=== PATIENT | female | born 1950 | race Caucasian/White ===

== ENCOUNTER → 2018-10-28 10:16 | Outpatient (CLI) | payer MEDICARE, SELFPAY ==
[2018-10-28 10:13] VITALS: BMI 52.1
--- NOTE | 2018-10-28 10:19 | RAD_ITS ---
STUDY: X-RAY - LEFT SHOULDER REASON FOR EXAM: Female, 68 years old. Pain TECHNIQUE: 3 view(s) of the shoulder. COMPARISON: None. FINDINGS: Mild degenerative changes of the acromioclavicular joint. No acute fractures and no calcific tendinitis or bursitis Electronically Signed: Georgi Moreno MD at 7:20 EST Tel , Service support , RAD/Shoulder min 2 Views
== END ==
PROVIDERS: Family Provider Physician Assistant; PCP Nurse Practitioner Family; Referring Provider Nurse Practitioner Family; Visit Provider Physician Assistant
DX: M25.512 Pain in left shoulder (principal)
CPT/HCPCS: 73030

== ENCOUNTER → 2018-11-11 07:06 | Outpatient (CLI) | payer MEDICARE, SELFPAY ==
[2018-10-28 10:13] VITALS: BMI 52.1
--- NOTE | 2018-11-11 07:12 | MRI_ITS ---
STUDY: MRI LEFT SHOULDER REASON FOR EXAM: Female, 68 years old. Left-sided shoulder pain after falling down stairs 6 weeks ago with decreased range of motion. Patient reportedly has a rotator cuff tear. TECHNIQUE: Standardized fat and water weighted pulse sequences were obtained in all 3 orthogonal planes. COMPARISON: Radiographs of the left shoulder dated October 28, 2018. FINDINGS: There is supraspinatus tendinosis with tendon attrition, but without a demonstrated supraspinatus tendon tear. Normal infraspinatus tendon. Normal subscapularis tendon. Normal teres minor tendon. There is moderate muscular atrophy of the supraspinatus muscle. There is moderate muscular atrophy of the infraspinatus muscle. There is mild muscular atrophy of the subscapularis muscle. There is mild muscular atrophy of the teres minor muscle. There is mild osteoarthritis of the glenohumeral articulation. There is a small joint effusion. Normal humeral head and visualized proximal humerus. Normal biceps labral complex. There is fluid surrounding the bicipital tendon suggesting tenosynovitis. Normal labrum. Normal capsulo- ligamentous complex. Normal rotator interval. 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 There is a Type II morphology (curved). There is minimal fluid distention of the subacromial bursa, consistent with mild subacromial-subdeltoid bursitis. Normal axillary space. Normal deltoid muscle. Normal trapezius muscle. MRI/Upper Ext Joint Only(Routine) IMPRESSION: 1. 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 2. Sequela of tendinopathy of the supraspinatus tendon. 3. Small joint effusion. 4. Mild degenerative arthropathy of the glenohumeral articulation. Electronically Signed: Bee Reid MD at 3:27 EST , Service support ,
--- OUTSIDE RECORDS SUMMARY | 2019-01-15 19:43 | XMS RPT_ITS ---
:1950 Author Organization OHIP Care Team Providers Name Role Phone DOMINGA CAMPBELL MD Attending Unavailable JOANN BRIGGS Primary Care Unavailable HOLLIS JONES DO Consulting Unavailable THALIA PATEL, DR. FRANK Sands Consulting Unavailable DOMINGA CAMPBELL MD Attending Unavailable JOANN BRIGGS Primary Care Unavailable DOMINGA CAMPBELL MD Attending Unavailable BRIGITTE, JOANN Primary Care Unavailable DOMINGA CAMPBELL MD Attending Unavailable BIRGITTE, JOANN Primary Care Unavailable DOMINGA CAMPBELL MD Attending Unavailable BRIGITTE, JOANN Primary Care Unavailable Wayt, Trung Attending Unavailable Brigitte, Joann Referring Unavailable Wayt, Trung Attending Unavailable Brigitte, Joann Referring Unavailable Wayt, Trung Primary Care Unavailable Wayt, Trung Attending Unavailable Wayt, Trung Referring Unavailable Brigitte, Joann Primary Care Unavailable Wayt, Trung Attending Unavailable Brigitte, Joann Referring Unavailable PROBLEMS PROBLEMS DATE TYPE CONDITION / CODE ATTENDING STATUS SOURCE 10/28/2018 Unknown M25.512 - Pain in Trung Sun Active [facility] left shoulder / Community M25.512(ICD-10) Hospital Repository 10/28/2018 Unknown M75.102 - Trung Sun Active [facility] Unspecified rotator Community cuff tear or rupture Hospital of left shoulder, Repository not specified as traumatic / M75.102(ICD-10) 06/15/2018 Admitting Encounter for SHANNAN FRANCIS Active [facility] Diagnosis screening for DOMINGA Vu [facility] malignant neoplasm Repository of cervix / Z12.4(ICD-10) 11/26/2017 Admitting Encounter for SHANNAN FRANCIS Active [facility] Diagnosis preprocedural DOMINGA P. [facility] laboratory Repository examination / Z01.812(ICD-10) 11/26/2017 Admitting Encounter for SHANNAN FRANCIS [facility] Diagnosis preprocedural DOMINGA P. [facility] cardiovascular Repository examination / Z01.810(ICD-10) PROCEDURES PROCEDURES No Procedure Records FoundRESULTS RESULTS ORTHOPEDIC VISIT Observed: 11/19/2018 Status: F Source: [place] RE[place] 12:46 PM [facility] [address] [place] [address] OFFICE VISIT Date of Service: 11/19/18 MR#: [id number] Acct: [id number] Name: KING HOOPER Rep #: [id number] : 1950 Provider: JOAQUIN Sun Age/Sex: 68/F Location: [facility] Status: Signed Intake Vital Signs11/19/18 Body Mass Index (BMI) 52.1 Intake Visit Reasons: LEFT SHOULDER Is patient in pain?: Yes Allergies No Known Allergies Allergy (Unverified 11/19/18 10:11) HPI LEFT SHOULDER: Details: KING HOOPER is a 68 year old F here today for a followup after her left shoulder MRI. Patient states that she continues to have left shoulder pain and denies any changes in her symptoms since her last visit. She states that she has decreased shoulder range of motion and weakness. Patient had an MRI which is here for review. ROS Const Reports system reviewed and no additional complaints, except as docu Eyes Reports system reviewed and no additional complaints, except as docu ENT Reports system reviewed and no additional complaints, except as docu Card Reports system reviewed and no additional complaints, except as docu Resp Reports system reviewed and no additional complaints, except as docu GI Reports system reviewed and no additional complaints, except as docu Reports system reviewed and no additional complaints, except as docu Musc Reports joint pain, Reports limited joint movement, Reports muscle weakness Skin/Breast Reports system reviewed and no additional complaints, except as docu Neuro Yes system reviewed and no additional complaints, except as docu Psych Reports system reviewed and no additional complaints, except as docu Endo Reports system reviewed and no additional complaints, except as docu Ortho Exam Left Shoulder Testing: No AROM-Forward Elevation 0-180, Yes Hawkin's, Yes Neer's SHOULDER: At this time patient continues to have no evident abnormalities on inspection of the left shoulder. She has no localized or generalized swelling. She has no ecchymosis/bruising, erythema or other skin changes of the shoulder. She continues to have decreased abduction and forward elevation. She does have signs of impingement in the office as well today. Assessment AND Plan Problems 1. Injury of left shoulder, initial encounter S49.92XA 2. Injury of left rotator cuff, subsequent encounter S46.002D 3. Rotator cuff impingement syndrome of left shoulder M75.42 4. 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 MRI findings did not show any evident major rotator cuff tears/pathology. We did discuss the acromioclavicular arthritis causing some impingement of the supraspinatus tendon. We also discussed some the symptoms being from the tendinosis of the rotator cuff. At this time we discussed treatment options based on findings from the MRI. After discussion we are going to go ahead with a subacromial injection into the left shoulder as well as start her in some physical therapy to see if we can start working on some range of motion and strength again. We will reevaluate after physical therapy and injection to see how she is doing. We discussed the possibility of requiring arthroscopic procedure for distal clavicle ectomy with subacromial decompression if symptoms do not resolve. Patient is in agreement this time she does not want to proceed with any surgical intervention and will try the conservative care at this point. Patient can take anti-inflammatories at the same time she needs to use very sparsely as she does have a history of gastric ulcers. She try topical remedies such as Biofreeze, mineral ice can continue to use ice and/or heat as desired. She is to notify the office of any increasing pain, increased swelling, erythema, or other skin changes. All questions were answered at this time This note was generated with [employer] dictation software. It may contain incorrect words, spelling, and punctuation that were not noted in checking the note before signing. Plan Detail Follow Up 6 Weeks Coding Level of Care Code Off vis,est,level 2 Diagnoses Injury of left shoulder, initial encounter S49.92XA Encounter type: initial encounter Injury of left rotator cuff, subsequent encounter S46.002D Encounter type: subsequent encounter Rotator cuff impingement syndrome of left shoulder M75.42 Arthritis of left acromioclavicular joint M19.012 11/19/18 1246 <Electronically signed by Trung NUÑEZ> Date Trung NUÑEZ Cosigner Signature: Date (if applicable) CC: UPPER EXT JOINT Observed: 11/11/2018 Status: F Source: [place] ONLY(ROUTINE) 7:12 AM [facility] Imaging Services [address] [place] [address] Upper Ext Joint Only(Routine) MR#: [id number] Acct: [id number] Name: KING HOOPER Rep #: [id number] : 1950 F 68 From: Bee Reid MD PCP: PEYTON Garcia Status: REG CLI Study: Upper Ext Joint Only(Routine) Date of Exam: 11/11/18 Exam# [id number] Ordering Dr: Trung Sun STUDY: MRI LEFT SHOULDER REASON FOR EXAM: Female, 68 years old. Left-sided shoulder pain after falling down stairs 6 weeks ago with decreased range of motion. Patient reportedly has a rotator cuff tear. TECHNIQUE: Standardized fat and water weighted pulse sequences were obtained in all 3 orthogonal planes. COMPARISON: Radiographs of the left shoulder dated October 28, 2018. FINDINGS: There is supraspinatus tendinosis with tendon attrition, but without a demonstrated supraspinatus tendon tear. Normal infraspinatus tendon. Normal subscapularis tendon. Normal teres minor tendon. There is moderate muscular atrophy of the supraspinatus muscle. There is moderate muscular atrophy of the infraspinatus muscle. There is mild muscular atrophy of the subscapularis muscle. There is mild muscular atrophy of the teres minor muscle. There is mild osteoarthritis of the glenohumeral articulation. There is a small joint effusion. Normal humeral head and visualized proximal humerus. Normal biceps labral complex. There is fluid surrounding the bicipital tendon suggesting tenosynovitis. Normal labrum. Normal capsulo- ligamentous complex. Normal rotator interval. 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 There is a Type II morphology (curved). There is minimal fluid distention of the subacromial bursa, consistent with mild subacromial-subdeltoid bursitis. Normal axillary space. Normal deltoid muscle. Normal trapezius muscle. MRI/Upper Ext Joint Only(Routine) IMPRESSION: 1. 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 2. Sequela of tendinopathy of the supraspinatus tendon. 3. Small joint effusion. 4. Mild degenerative arthropathy of the glenohumeral articulation. Electronically Signed: Bee Reid MD at 3:27 EST , Service support , CC: PEYTON Briggs; JOAQUIN Sun [employer] Demonstrator: Signed ORTHOPEDIC VISIT Observed: 10/28/2018 Status: F Source: [place] REPORT 12:54 PM [facility] [address] [place] [address] [place] [address] OFFICE VISIT Date of Service: 10/28/18 MR#: [id number] Acct: [id number] Name: KING HOOPER Rep #: [id number] : 1950 Provider: JOAQUIN Sun Age/Sex: 68/F Location: [facility] Status: Signed Intake Vital Signs10/28/18 Height 5 ft 6 in 10/28/18 Weight: 323 lb 10/28/18 Body Mass Index (BMI) 52.1 Intake Visit Reasons: LEFT SHOULDER Is patient in pain?: Yes Pain scale (1-10): 6 HPI LEFT SHOULDER: Details: KING HOOPER is a 68 year old F new patient referred by Gavi Briggs for left shoulder pain after a fall down a few stairs 6wks ago. She landed on the left shoulder and has had pain, decreased rom and shooting sensation down to the pinky finger ever since. She has less than 90 degrees of arom in abd and flexion, can passively get around 90. She has not had any PT, injection or imaging. Her pain is lateral shoulder and biceps constantly. Ortho Exam Left Shoulder Skin/Wound: No ecchymosis Testing: Yes Drop Arm, Yes Hawkin's, Yes Neer's, Yes Speed's, Yes TTP Biceps, No TTP AC Joint, No AROM-Forward Elevation 0-180 (75), No AROM-External Rotation at side 0-60 (50), No PROM-Forward Elevation 0-180, Yes empty can Internal Rotation: T12 SHOULDER: Patient has no evident abnormalities on inspection of the shoulder. She has no localized or generalized swelling. She does have tenderness on palpation of the lateral shoulder just under the acromion as well as the anterior shoulder over the biceps. She also has some tenderness on the inferior scapula region. Patient has evident decreased range of motion as noted above. Her abduction is roughly 60 degrees. She has very evident weakness throughout her motion. Her external rotation is what is most limited (maybe 2+ or 3/5 ). She has positive impingement signs as well as positive speeds test. Assessment AND Plan Problems 1. Injury of left shoulder, initial encounter S49.92XA 2. Injury of left rotator cuff, initial encounter S46.002A Plan Obtained Xrays of patient's left shoulder. Personally reviewed Xrays. There is no obvious fracture, dislocation, or lucency noted. See chart for further details. At this time patient has very evident signs and symptoms that are consistent with a rotator cuff tear. She has very decreased range of motion and pretty decreased strength all of this point to this diagnosis. As a result I do not feel that physical therapy or injections is the next best step. At this time we are going to set her up with an MRI of the left shoulder to evaluate the rotator cuff further. In the meantime patient can ice, take anti-inflammatories and use topical remedies. To notify the office sooner with any injuries, increasing pain, increasing swelling or other symptoms. Patient is to follow- up in the office following her MRI to go over results and discuss the next step. This note was generated with [employer] dictation software. It may contain incorrect words, spelling, and punctuation that were not noted in checking the note before signing. Orders Orders: Coding Level of Care Code Off vis,new,level 3 Diagnoses Injury of left shoulder, initial encounter S49.92XA Encounter type: initial encounter Injury of left rotator cuff, initial encounter S46.002A Encounter type: initial encounter 10/28/18 1254 <Electronically signed by Trung NUÑEZ> Date Trung NUÑEZ Cosigner Signature: Date (if applicable) CC: SHOULDER MIN 2 VIEWS Observed: 10/28/2018 Status: F Source: [place] 10:19 AM [facility] Imaging Services [address] [place] [address] Shoulder min 2 Views MR#: [id number] Acct: [id number] Name: KING HOOPER Rep #: [id number] : 1950 F 68 From: Georgi Moreno MD PCP: PEYTON Garcia Status: REG CLI Study: Shoulder min 2 Views Date of Exam: 10/28/18 Exam# [id number] Ordering Dr: Trung Sun STUDY: X-RAY - LEFT SHOULDER REASON FOR EXAM: Female, 68 years old. Pain TECHNIQUE: 3 view(s) of the shoulder. COMPARISON: None. FINDINGS: Mild degenerative changes of the acromioclavicular joint. No acute fractures and no calcific tendinitis or bursitis Electronically Signed: Georgi Moreno MD at 7:20 EST Tel , Service support , RAD/Shoulder min 2 Views CC: PEYTON Briggs; JOAQUIN Sun [employer] Dem[employer]ator: Signed SUPER[employer]OR [employer] CYTOLOGY REPORT Observed: 06/15/2018 Status: F Source: [facility] 12:21 PM [facility] REPOSITORY . Pathology Reports Accession: Collected Date/Time: Received Date/Time: Pathologist: [id number] 06/15/2018 12:21 EDT 06/15/2018 18:00 EDT Employment Program Representative Cytology Report SPECIMEN: Specimen Description: Liquid Prep Reflex ASCUS Specimen: Cervical Screening or Diagnostic: Screening RELEVANT HISTORY: LMP: Menopause Hormones Rx: Yes SPECIMEN ADEQUACY: SATISFACTORY FOR EVALUATION ENDOCERVICAL/TRANSFORMATIONAL ZONE COMPONENT ABSENT/INSUFFICIENT INTERPRETATION/RESULTS: NEGATIVE FOR INTRAEPITHELIAL LESION OR MALIGNANCY Electronically Signed by Pathology report verified by [facility] Screened by: IRINA Electronically signed by Lori BRANDON ([facility]) Sign-Out Date: 06/23/2018 08:49 Performing Lab: [address] Disclaimer The Pap test is a screening test for cervical cancer. As evidenced by published data, it is subject to both inherent false negative and false positive results. Your patient's results should be interpreted in context with pertinent clinical history including gynecological examination. Performed By: #### GYCR #### [place] [address] FINAL SURGICAL Observed: 12/02/2017 Status: F Source: [facility] PATHOLOGY REPORT 10:01 AM [facility] REPOSITORY . Pathology Reports Accession: Collected Date/Time: Received Date/Time: Pathologist: [id number] 12/02/2017 10:01 EST 12/02/2017 11:12 EST DO ENDY CORONADO Final Surgical Pathology Report DIAGNOSIS: ENDOMETRIAL CURETTINGS -- FRAGMENTS OF ATROPHIC ENDOMETRIUM, POLYP AND ECTOCERVIX. NO MALIGNANCY. In focal areas changes suggestive of estrogen withdrawal/breakthrough bleeding are noted. CLINICAL INFORMATION: Procedure: DILATION AND CURETTAGE Preoperative diagnosis: POST MENOPAUSAL BLEEDING Postoperative diagnosis: POST MENOPAUSAL BLEEDING SPECIMEN: A EMBX - ENDOMETRIAL CURETTINGS GROSS DESCRIPTION: _Received in formalin labeled endometrial curettings is about 0.75 cc of basurto tissue and dark red blood clot. A S -1 Dictated by CHARLIE NUÑEZ ([facility]) MICROSCOPIC DESCRIPTION: Slides reviewed. Electronically Signed by Pathology Report verified by [facility] Electronically signed by ENDY CORONADO DO Sign out Date: 12/03/2017 12:38 Performing Lab: [address] Performed By: #### SPFR #### [place] [address] CBC Collected: 11/26/2017 Status: F Source: [facility] 5:11 PM FOUNDATION REPOSITORY TYPE CODE TESTS RESULT OUT OF REFERENCE UNITS RANGE LAB WBC(LOINC) 4.50-10.80 10 3/mcL WBC 8.10 LAB RBCCT(LOINC 4.10-5.30 10 6/mcL ) RBC 4.50 LAB HGB(LOINC) 12.0-16.0 G/dL Hgb 14.3 LAB HCT(LOINC) 34.0-46.0 % Hct 41.1 LAB MCV(LOINC) 80.0-99.0 fL MCV 91.3 LAB MCH(LOINC) 27.0-33.0 pg MCH 31.7 LAB MCHC(LOINC) 32.0-36.0 G/dL MCHC 34.8 LAB RDW(LOINC) 11.5-15.5 % RDW 12.8 LAB PLT(LOINC) 150-450 10 3/mcL Platelet 218 LAB MPV(LOINC) 6.6-10.5 fL MPV 8.5 Performed By: #### CBC, ADIFF, ANEU, PRO, CMP, GFR #### [address] [address] .AUTO DIFF Collected: 11/26/2017 Status: F Source: [facility] 5:11 PM FOUNDATION REPOSITORY TYPE CODE TESTS RESULT OUT OF REFERENCE UNITS RANGE LAB AMAYA(LOINC) 50.0-75.0 % Neutrophil % 62.1 LAB LYM(LOINC) 20.0-40.0 % Lymphocyte % 29.4 LAB MON(LOINC) 2.0-13.0 % Monocyte % 7.1 LAB EO(LOINC) 0.0-6.0 % Eosinophil % 0.9 LAB BAS(LOINC) 0.0-2.5 % Basophil % 0.5 LAB ABLYM(LOIN 0.90-4.32 10 3/mcL C) Lymphocyte, 2.40 Absolute LAB SHRUTI(LOINC 0.09-1.40 10 3/mcL ) Monocyte, 0.60 Absolute LAB AEOS(LOINC 0.00-0.65 10 3/mcL ) Eosinophil, 0.10 Absolute LAB ABAS(LOINC 0.00-0.27 10 3/mcL ) Basophil, 0.00 Absolute Performed By: #### CBC, ADIFF, ANEU, PRO, CMP, GFR #### [address] [address] .NEUABS Collected: 11/26/2017 Status: F Source: [facility] 5:11 PM [facility] REPOSITORY TYPE CODE TESTS RESULT OUT OF REFERENCE UNITS RANGE LAB ANEU(LOINC) 2.25-8.10 10 3/mcL Neutrophil, 5.00 Absolute Performed By: #### CBC, ADIFF, ANEU, PRO, CMP, GFR #### [facility] [address] [place] [address] PRO Collected: 11/26/2017 Status: F Source: [facility] 5:11 PM [facility] REPOSITORY TYPE CODE TESTS RESULT OUT OF REFERENCE UNITS RANGE LAB PT(LOINC) 9.0-14.5 seconds Protime 9.9 Result Comment: Effective 05/09/08, Protime results may be affected by some antibiotics (i.e. Ciprofloxacin, Azithromycin, Bactrim) which may potentiate the action of oral anticoagulants, with further increases in Protime/INR. LAB INR(LOINC) ratio PT International Ratio 0.8 Result Comment: The [employer] (CHEST, 1992, 102:312S-25S) recommended therapeutic range for oral anticoagulant therapy is: LOW RISK: Prophylaxis of venous thrombosis INR: 2.0-3.0 Treatment of pulmonary embolism 2.0-3.0 Prevention of systemic embolism 2.0-3.0 HIGH RISK: Mechanical prosthetic valves 2.5-3.5 Performed By: #### CBC, ADIFF, ANEU, PRO, CMP, GFR #### [place] [address] CMP Collected: 11/26/2017 Status: F Source: [facility] 5:11 PM [facility] REPOSITORY TYPE CODE TESTS RESULT OUT OF REFERENCE UNITS RANGE LAB GLU(LOINC) 82-115 mg/dL Glucose Level 87 LAB NA(LOINC) 136-145 mEq/L Sodium Level 141 LAB K(LOINC) 3.5-5.0 mEq/L Potassium Level 4.5 LAB CL(LOINC) 98-110 mEq/L Chloride 104 LAB CO2(LOINC) 22-32 mEq/L CO2 28 LAB EBAL(LOINC 4.0-15.0 mEq/L ) Electrolyte Balance 9.0 LAB BUN(LOINC) 8.0-22.0 mg/dL BUN 8.0 LAB CRE(LOINC) 0.50-1.20 mg/dL Creatinine Lvl (s) 0.57 LAB BC(LOINC) 10.0-22.0 ratio BUN/Creatinine 14.0 Ratio LAB CA(LOINC) 8.4-10.1 mg/dL Calcium Lvl 8.9 LAB PROT(LOINC 6.0-8.5 G/dL ) Total Protein 6.6 LAB ALB(LOINC) 3.2-4.8 G/dL Albumin Level 3.4 LAB GLB(LOINC) 1.5-3.8 G/dL Globulin 3.2 LAB AG(LOINC) 0.9-1.6 ratio A/G Ratio 1.1 LAB BILT(LOINC 0.2-1.2 mg/dL ) Bili Total 0.4 LAB AP(LOINC) 38-126 U/L Alk Phos 67 LAB AST(LOINC) 8-34 U/L AST/SGOT 10 LAB ALT(LOINC) 10-49 U/L ALT/SGPT 11 Performed By: #### CBC, ADIFF, ANEU, PRO, CMP, GFR #### [place] [address] .GFR Collected: 11/26/2017 Status: F Source: [facility] 5:11 PM FOUNDATION REPOSITORY TYPE CODE TESTS RESULT OUT OF REFERENCE UNITS RANGE LAB GFRAA(LOINC ml/min/1.73 ) sqm GFR >60 [place] Result Comment: GFR Population mean for , Non- Americans Ages 20-29 = 116 mL/min/1.73 sq.m. Ages 30-39 = 107 mL/min/1.73 sq.m. Ages 40-49 = 99 mL/min/1.73 sq.m. Ages 50-59 = 93 mL/min/1.73 sq.m. Ages 60-69 = 85 mL/min/1.73 sq.m. Ages 70+ = 75 mL/min/1.73 sq.m. Chronic Kidney Disease: Less than 60 mL/min/1.73 square meters End Stage Renal Disease: Less than 15 mL/min/1.73 square meters LAB GFRNO(LOINC) ml/min/1.73sqm GFR Non- >60 Result Comment: GFR Population mean for , Non- Americans Ages 20-29 = 116 mL/min/1.73 sq.m. Ages 30-39 = 107 mL/min/1.73 sq.m. Ages 40-49 = 99 mL/min/1.73 sq.m. Ages 50-59 = 93 mL/min/1.73 sq.m. Ages 60-69 = 85 mL/min/1.73 sq.m. Ages 70+ = 75 mL/min/1.73 sq.m. Chronic Kidney Disease: Less than 60 mL/min/1.73 square meters End Stage Renal Disease: Less than 15 mL/min/1.73 square meters Performed By: #### CBC, ADIFF, ANEU, PRO, CMP, GFR #### [place] [address] ALLERGIES ALLERGIES DATE TYPE / CODE NAME / CODE REACTION SEVERITY SOURCE 11/19/2018 Drug No Known Unknown [facility] Allergy/4160 Allergies/F00 Hospital 78170(SNOMED [id number](RXNOR Repository CT) M) ENCOUNTERS ENCOUNTERS ADMIT/DISCHARGE ACCOUNT NUMBER ADMITTING ENCOUNTER LOCATION SOURCE CLASS 11/19/2018/11/19/19 [id number] Ambulatory BMSBuilding: [place] 19 BMS.[facility] Repository 11/11/2018 [id number] Ambulatory [facility] ding:MRI Repository 10/28/2018 [id number] Ambulatory [facility] ding:HPRAD Repository 10/28/2018/10/28/19 [id number] Ambulatory BMSBuilding: [place] 19 BMS.[facility] Repository 06/15/2018/06/19/20 [id number] [facility] [place] [facility] Repository 01/07/2018 [id number] Ambulatory ABuilding:NX [place] [facility] Repository 12/02/2017/12/02/19 [id number] Ambulatory ABuilding:SD [place] 18 URoom: Health 0114Bed: A [facility] Repository 11/26/2017/11/26/19 [id number] [facility] [place] [facility] Repository 11/26/2017/11/30/19 [id number] Ambulatory MEGGAN [place] 18 [facility] g:[facility] Repository PAYERS PAYERS ENCOUNTER GUARANTOR PAYER SUBSCRIBER SOURCE 11/19/2018 KING Callahan Primary KING Callahan [place] [id number] [address] Insurance:LATTER-DAY SAVAGEDOB: [facility] [id number] Hospital [address]Fsf: [phone]) MINISTRIEPolicy Repository [phone] () Number: [id number] Date: [place], [place] [address]ON: 11/19/2018 Secondary NOT GIVENUNK [place] Insurance:SELF PAY [facility] Number: Effective Repository Date:2018-11-18 11/11/2018 KING Callahan Primary KING Callahan [place] [id number] 12TH Insurance:LATTER-DAY SAVAGEDOB: [facility] [id number] Hospital [address]Tkn: ([phone]) MINISTRIEPolic Repository [phone] () Number: [id number] Date: [place], [place] [address]KS: 11/11/2018 Secondary NOT GIVENUNK [place] Insurance:SELF PAY [facility] Number: Effective Repository Date:2018-11-09 10/28/2018 KING Callahan Primary KING Callahan [place] [id number] 12[address] Insurance:COMMERCIAL SAVAGEDOB: [facility] Number: [id number] Hospital [address]Uwj: [id number] Repository [phone] () Date: [place], [place] [address]XC: 10/28/2018 Secondary NOT GIVENUNK [place] Insurance:SELF PAY [facility] Number: Effective Repository Date:2018-10-28 10/28/2018 KING Callahan Primary KING S [place] [id number] 12[address] Insurance:COMMERCIAL SAVAGEDOB: [facility] Number: [id number] Hospital [id number]: [phone] [id number] Repository [phone] (HP) Date:2018-09-02 10/28/2018 Secondary NOT GIVENUNK [place] Insurance:SELF PAY [facility]: Effective Repository Date:2018-10-28 06/15/2018 [facility] SAVAGEDOB: Insurance:SELF SAVAGEDOB: [facility] PAYPolicy Number: [id number] [address] [place], [place] Date:2018-06-15 [place] [address]~[place] [id number] Name:[phone]: [phone] [email or web address] [phone] l: [phone] (HP) (HP) [phone] (WP) 01/07/2018 [facility] SAVAGEDOB: Insurance:MEDICAID OF SAVAGEDOB: [facility] OHIOPolicy Number: [id number] Repository [address] [place] [address] [id number] 2 [place], [place] Date:2018-01-07 [place] [address]~[place] [id number]: [phone] [email or web address] Name:TOÑO Billy [phone] l: [phone], [place] (HP) (HP) [phone]: (WP) [phone] 12/02/2017 [facility] SAVAGEDOB: Insurance:MEDICAID OF SAVAGEDOB: [facility] [place]icy Number: [id number] Repository [address] [place] [address] [id number] 2 [place], [place] Date:2017-11-12 [place] [address]~[place] [id number] [id number]: [phone] [email or web address] Name:TOÑO BOLES [phone] l: [phone], [place] (HP) (HP) [phone]: (WP) [phone] 11/26/2017 [facility] SAVAGEDOB: Insurance:MEDICAID OF SAVAGEDOB: [facility] [place]icy Number: [id number] Repository [address] [place] [address] [id number] 2 [place], [place] Date:2017-11-26 - [place] [address]~[place] [id number] [phone]: [phone] [email or web address] Name:TOÑO Billy [phone] l: [phone], [place] (HP) (HP) [phone]: (WP) [phone] 11/26/2017 [facility] SAVAGEDOB: Insurance:MEDICAID OF SAVAGEDOB: [facility] [place]Policy Number: [id number] Repository [address] [place] [address] [id number] 2 [place], [place] Date:2017-11-26 [place] [address]~[place] [id number]: [phone] [email or web address] Name:TOÑO BOLES Mariajose [phone] l: [phone], [place] (HP) (HP) [phone]: (WP) [phone]
== END ==
PROVIDERS: Family Provider Nurse Practitioner Family; PCP Nurse Practitioner Family; Referring Provider Physician Assistant; Visit Provider Physician Assistant
DX: M75.102 Unspecified rotator cuff tear or rupture of left shoulder, not specified as traumatic (principal)
CPT/HCPCS: 73221

== ENCOUNTER → 2019-01-07 07:42 | Outpatient (CLI) | payer MEDICARE, OTHER, SELFPAY ==
[2018-11-19 10:12] VITALS: BMI 52.1
--- NOTE | 2019-01-07 07:47 | RAD_ITS ---
STUDY: X-RAY - ESOPHAGUS (BARIUM SWALLOW) WITH FLUOROSCOPY REASON FOR EXAM: Female, 68 years old. Chronic esophageal spasm. TECHNIQUE: 15 view(s) of the esophagus were obtained following swallowing of barium. FLUOROSCOPY TIME (if supplied): (0:37) minutes/seconds COMPARISON: None. FINDINGS: There is no demonstrated esophageal foreign body. There is no demonstrated stricture or mucosal abnormality. There is a small hiatal hernia of the fundus of the stomach. The patient is status post partial gastrectomy for gastric bypass surgery. There is evidence of gastroesophageal reflux. The patient ingested a 12 mm tablet and barium without any difficulty. There is atherosclerotic tortuosity of the aortic arch and descending thoracic aorta. Normal visualized pulmonary parenchyma. There are diffuse degenerative changes of the visualized thoracic spine. RAD/Esophagus Only IMPRESSION: Status post partial gastrectomy. Small sliding hiatal hernia with gastroesophageal reflux. Electronically Signed: Rajesh Torres, at 9:56 EDT , Service support ,
== END ==
PROVIDERS: Family Provider Nurse Practitioner Family; PCP Nurse Practitioner Family; Referring Provider Internal Medicine Gastroenterology; Visit Provider Internal Medicine Gastroenterology
DX: R13.10 Dysphagia, unspecified (principal)
CPT/HCPCS: 74220

== ENCOUNTER 2021-10-31 11:17 | Emergency (ER) | payer MEDICARE, SELFPAY ==
[2021-10-31 11:18] VITALS: BP 188/99; PULSE 64; RESP 16; TEMP 36.2; O2SAT 99; BMI 51.9
--- NOTE | 2021-10-31 11:56 | EDS_ITS ---
HPI HPI - URI History of Present Illness Chief Complaint: Shortness of Breath Narrative Narrative: 71-year-old female presenting for concern for COVID-19 as she has been exposed. She has had subjective fevers, chills, coughing. She does not feel dyspneic. She is eating and drinking normally. Is making normal urine and stool. She denies chest pain. She states she wants to be tested for COVID. She states her symptoms onset about 3 days ago ROS ROS ED Constitutional Constitutional ED: Reports chills and subjective Eyes Eyes: Denies blurry vision or diplopia ENT ENT ED: Reports rhinorrhea; Denies sore throat Cardiovascular Cardiovascular: Denies chest pain or palpitations Respiratory/Chest Respiratory/Chest: Reports cough; Denies dyspnea on exertion Gastrointestinal Gastrointestinal: Denies abdominal pain, diarrhea or vomiting Genitourinary Genitourinary ED: Denies dysuria or hematuria Musculoskeletal Musculoskeletal: Reports myalgias; Denies arthralgias or neck pain Integumentary Denies rash Neurologic Neurologic: Denies headache(s) or weakness PFSH [facility] Medical History Cholecystectomy planned HTN (hypertension) Home Medications cholecalciferol (vitamin D3) 50 mcg (2,000 unit) capsule ea PO 08/06/20 [History Last Taken Unknown] cyanocobalamin (vitamin B-12) 250 mcg tablet ea PO 08/06/20 [History Last Taken Unknown] duloxetine 30 mg capsule,delayed release ea PO 08/06/20 [History Last Taken Unknown] ergocalciferol (vitamin D2) 1,250 mcg (50,000 unit) capsule 50,000 unit PO QWEEK cap 08/06/20 [History Last Taken Unknown] lisinopril 20 mg tablet PO 08/06/20 [History Last Taken Unknown] megestrol 40 mg tablet PO 08/06/20 [History Last Taken Unknown] meloxicam 15 mg tablet 15 mg PO DAILY #30 tab 08/06/20 [Rx Last Taken Unknown] omega-3 acid ethyl esters 1 gram capsule 1 cap PO DAILY 08/06/20 [History Last Taken Unknown] omeprazole 40 mg capsule,delayed release PO 08/06/20 [History Last Taken Unknown] oxybutynin chloride 5 mg tablet ea PO 08/06/20 [History Last Taken Unknown] thyroid (pork) 90 mg tablet ea PO 08/06/20 [History Last Taken Unknown] Allergy/AdvReac Type Severity Reaction Status Date / Time Opioids - Morphine Analogues Allergy Other Verified 10/31/21 11:19 Surgical History H/O bilateral oophorectomy H/O shoulder surgery H/O: hysterectomy History of gastric stapling History of tonsillectomy Social History Smoking Status: Never smoker EXAM Physical Exam Const Vital Signs: 10/31/21 11:18 10/31/21 11:37 Temperature 97.2 F L Temperature Source Temporal Pulse Rate 64 Respiratory Rate 16 Respiratory Effort Short of Breath Respiratory Depth Normal Respiratory Pattern Normal Blood Pressure 188/99 H Blood Pressure Mean 128 Pulse Ox 99 Oxygen Delivery Method Room Air Positive obese General Appearance ED: NAD; Negative for pallor Nutritional Appearance: obese HEENT Reports moist mucous membranes normocephalic and atraumatic Eyes PERRL and EOMs intact bilaterally Neck supple and no meningeal signs Resp normal respiratory effort and clear to auscultation bilaterally Cardio Rate: regular rate Rhythm: regular rhythm Neuro oriented x3 and CN's II-XII intact bilaterally Sensorium / Orientation: alert Skin General Skin Exam: Negative for jaundice or pallor Rashes: no rashes MDM MDM MDM Narrative Medical decision making narrative: 71-year-old female presenting for a COVID test that she was exposed to COVID-19. She does not have severe symptoms. Her vital signs are stable and she is afebrile.. Is 99% on room air and respiratory 16. Heart rate is 64. She is nontoxic-appearing. Her lungs are clear to auscultation. She tested positive for COVID-19 and request referral to monoclonal antibodies. Patient counseled on monitoring her pulse ox and given return precautions. Impression: 1. COVID-19 Discharge Plan Triage Chief Complaint: Shortness of Breath ED Provider: Josh Hua Dx/Rx/DC Orders Prescriptions: No Action megestrol 40 mg tablet PO RF: 0 thyroid (pork) 90 mg tablet PO RF: 0 oxybutynin chloride 5 mg tablet PO RF: 0 cholecalciferol (vitamin D3) 50 mcg (2,000 unit) capsule PO RF: 0 cyanocobalamin (vitamin B-12) 250 mcg tablet PO RF: 0 duloxetine 30 mg capsule,delayed release(DR/EC) PO RF: 0 lisinopril 20 mg tablet PO RF: 0 omeprazole 40 mg capsule,delayed release(DR/EC) PO RF: 0 ergocalciferol (vitamin D2) 1,250 mcg (50,000 unit) capsule 50,000 unit PO QWEEK RF: 0 omega-3 acid ethyl esters 1 gram capsule 1 cap PO DAILY RF: 0 meloxicam [Mobic] 15 mg tablet 15 mg PO DAILY Qty: 30 RF: 0
[2021-10-31 12:54] VITALS: PULSE 72; RESP 18; TEMP 37.3; O2SAT 96
== END 2021-10-31 12:55 | disposition home or self-care (01) ==
PROVIDERS: Emergency Provider Student in an Organized Health Care Education/Training Program; Visit Provider Student in an Organized Health Care Education/Training Program
DX: U07.1 COVID-19 (principal); E66.9 Obesity, unspecified
CPT/HCPCS: 87426; 99282

== ENCOUNTER 2021-11-04 12:45 | Outpatient (CLI) | payer MEDICARE, SELFPAY ==
[2021-11-04 13:02] VITALS: BP 186/96; PULSE 67; RESP 18; TEMP 36.4; O2SAT 97; BMI 54.1
[2021-11-04] MEDS: 0.9% Saline Lock 10 ML Syringe IV (13:04)
[2021-11-04 13:27] VITALS: BP 132/82; PULSE 64; RESP 16; TEMP 36.8; O2SAT 97
[2021-11-04 14:15] VITALS: BP 155/75; PULSE 62; RESP 16; TEMP 37; O2SAT 96
== END 2021-11-04 23:59 | disposition home or self-care (01) ==
LOC: MS3OUT 12:45 → MS3 12:46
PROVIDERS: Referring Provider Student in an Organized Health Care Education/Training Program; Visit Provider Student in an Organized Health Care Education/Training Program
DX: U07.1 COVID-19 (principal)
CPT/HCPCS: J7050; M0243; A4216; Q0244

== ENCOUNTER 2024-01-16 11:31 | Emergency (ER) | payer MEDICARE, SELFPAY ==
[2024-01-16 11:32] VITALS: BP 147/82; BP 147/86; PULSE 58; RESP 16; TEMP 35.8; O2SAT 93; BMI 62.7
--- NOTE | 2024-01-16 11:48 | RAD_ITS ---
HISTORY pain. TECHNIQUE: XR Knee 1 or 2 Views. COMPARISON: None. FINDINGS: BONES : No acute fracture identified. No abnormal periprosthetic lucency seen. JOINTS: Right knee in place without dislocation. Mild joint effusion soft tissue swelling. RAD/Knee 1 or 2 Views IMPRESSION: Right knee arthroplasty without acute fracture or dislocation identified. Electronically Signed: Blanca Ortega MD at 12:20 EDT ,
--- NOTE | 2024-01-16 11:49 | EDS_ITS ---
HPI <JOAQUIN Marsh - Last Filed: 01/16/24 14:35> History of Present Illness Chief Complaint: Lower Extremity Injury Narrative Narrative: 73-year-old female slipped in the bathtub with her right leg and under her. She called her daughter who was in the house who was able to untuck her right leg from under her body but they had to call EMS to cut her out of the bathtub. Patient has right ankle pain and swelling. She denies head injury or LOC. She is not on blood thinners. PFSH <JOAQUIN Marsh - Last Filed: 01/16/24 14:35> [facility] Medical History (Updated 01/16/24 @ 20:[address] Liam Rdz MD) Cholecystectomy planned HTN (hypertension) Home Medications cholecalciferol (vitamin D3) 50 mcg (2,000 unit) capsule 2,000 unit PO DAILY 08/06/20 [History Last Taken Unknown] cyanocobalamin (vitamin B-12) 250 mcg tablet 250 mcg PO DAILY 08/06/20 [History Last Taken Unknown] duloxetine 30 mg capsule,delayed release 30 mg PO BID 08/06/20 [History Last Taken Unknown] lisinopril 20 mg tablet 20 mg PO DAILY 08/06/20 [History Last Taken Unknown] omeprazole 40 mg capsule,delayed release 40 mg PO DAILY 08/06/20 [History Last Taken Unknown] oxybutynin chloride 5 mg tablet 5 mg PO BID 08/06/20 [History Last Taken Unknown] thyroid (pork) 90 mg tablet 90 mg PO DAILY 08/06/20 [History Last Taken Unknown] meloxicam 15 mg tablet 15 mg PO DAILY #21 tabs 02/25/23 [Rx Last Taken Unknown] hydrocodone-acetaminophen 5-325mg 5mg-325mg 1 tab PO Q6H PRN pain 3 days #12 tabs 01/16/24 [Rx Last Taken Unknown] Allergy/AdvReac Type Severity Reaction Status Date / Time Opioids - Morphine Analogues Allergy Other Verified 01/16/24 11:38 Surgical History (Updated 02/25/23 @ 10:40 by Corinne Casey) H/O bilateral oophorectomy H/O shoulder surgery H/O: hysterectomy History of gastric stapling History of left knee replacement History of tonsillectomy Social History Smoking Status: Never smoker ROS <JOAQUIN Marsh - Last Filed: 01/16/24 14:35> ROS ED ROS Narrative CVS: Negative for chest pain. Respiratory: Negative for shortness of breath. Neuro: Negative for motor/sensory dysfunction. Musc: Positive for right ankle pain, trauma. EXAM <JOAQUIN Marsh - Last Filed: 01/16/24 14:35> Physical Exam Narrative Exam Narrative: CONST: Patient sitting in no acute distress. EYES: Normal inspection. NECK: Normal inspection. RESP: No respiratory distress, CTAB. Chest wall nontender. CVS: Regular rate and rhythm, no murmur, no gallop. ABD: Soft and nontender, no guarding or rebound. Back: Normal inspection, no midline tenderness. SKIN: Color normal, no rash, warm, dry, intact. EXTREMITIES: Slight tenderness right patella. Soft tissue swelling and bruising over right medial and lateral ankle, no deformity or crepitus. No tenderness of the hip or foot. 2+ DP pulses. No tenderness of left lower extremity. NEURO: Oriented and answering questions appropriately. PSYCH: Normal affect. Const Vital Signs: 01/16/24 11:32 01/16/24 11:32 01/16/24 14:57 Temperature 96.4 F L 96.4 F L 97.5 F L Temperature Source Temporal Oral Pulse Rate 58 L 58 L 65 Respiratory Rate 16 16 19 H Blood Pressure 147/86 H 147/82 H 155/78 H Blood Pressure Mean 106 103 103 Pulse Ox 93 93 100 Oxygen Delivery Method Room Air Room Air <Dr. Liam Rdz MD - Last Filed: 01/16/24 20:43> Physical Exam Const Vital Signs: 01/16/24 11:32 01/16/24 11:32 01/16/24 14:57 Temperature 96.4 F L 96.4 F L 97.5 F L Temperature Source Temporal Oral Pulse Rate 58 L 58 L 65 Respiratory Rate 16 16 19 H Blood Pressure 147/86 H 147/82 H 155/78 H Blood Pressure Mean 106 103 103 Pulse Ox 93 93 100 Oxygen Delivery Method Room Air Room Air MDM <JOAQUIN Marsh - Last Filed: 01/16/24 14:35> MDM MDM Narrative Medical decision making narrative: History gathered from: Patient and EMS Differential: Right ankle fracture versus sprain Patient has right ankle Busby B fracture. She was fitted with a walking boot and is able to ambulate with a walker. After discussion of her allergies she was prescribed [place]. In the past it sounds like she may have had a lightheaded reaction to other codeine products but no true allergy. Patient will follow-up with her established orthopedist and was discharged in stable condition. I have personally performed a face to face assessment of the patient and have reviewed the MANE Note. I performed a substantive portion of the visit including all aspects of the following. My dickson findings include: History is remarkable for fall. Patient complains of right knee and ankle pain. Patient was unable to stand after fall. Apparently she had to be cut out of the bathtub. She denied loss conscious. Denies neck pain. Denies paresthesia, anesthesia or motor weakness. Exam is remarkable for soft tissue swelling with ecchymosis lateral malleolus. This pain the patient with lateral malleolus. Is no pain ovation over the medial malleolus. Is no laxity with drawer testing. She has no pain the patient of the base of the fifth metatarsal. DP is slightly palpable. Examination of the knee reveals a large knee. There is no obvious effusion. Patellas not blottable. Exam is limited due to body habitus. She is able to extend. Medical Decision Making x-ray of the knee and ankle were obtained. X-ray of the knee reveals no acute process. There is no effusion, fracture or dislocation per my independent review and interpretation. Three-view x-ray of the ankle reveals a nondisplaced lateral malleolus fracture, Busby type B. Case was discussed with podiatry who she is seen. He agrees with walking boot. Other additions or changes: Apparently we may not have a walking boot large enough. If we do not she will placed in a posterior splint and not weightbearing. Will make sure patient is able to navigate with a walking boot or posterior splint with crutches/walker. Radiography Diagnostic Testing: Clinical Impression(s) from Imaging Studies Knee X-Ray 01/16/24 11:48 IMPRESSION: Right knee arthroplasty without acute fracture or dislocation identified. Electronically Signed: Blanca Ortega MD at 12:20 EDT , Ankle X-Ray 01/16/24 11:50 IMPRESSION: Nondisplaced fracture of the right distal fibula. Possible nondisplaced fracture of the medial malleolus. Electronically Signed: Blanca Ortega MD at 12:19 EDT , ED attending interpretation of right knee shows arthroplasty intact without fracture or dislocation. ED attending interpretation of right ankle shows nondisplaced fracture of the right distal fibula. <Dr. Liam Rdz MD - Last Filed: 01/16/24 20:43> [facility] MDM Narrative Medical decision making narrative: History gathered from: Patient and EMS Differential: Right ankle fracture versus sprain Patient has right ankle Busby B fracture. She was fitted with a walking boot and is able to ambulate with a walker. After discussion of her allergies she was prescribed [place]. In the past it sounds like she may have had a lightheaded reaction to other codeine products but no true allergy. Patient will follow-up with her established orthopedist and was discharged in stable condition. I have personally performed a face to face assessment of the patient and have reviewed the MANE Note. I performed a substantive portion of the visit including all aspects of the following. My dickson findings include: History is remarkable for fall. Patient complains of right knee and ankle pain. Patient was unable to stand after fall. Apparently she had to be cut out of the bathtub. She denied loss conscious. Denies neck pain. Denies paresthesia, anesthesia or motor weakness. Exam is remarkable for soft tissue swelling with ecchymosis lateral malleolus. This pain the patient with lateral malleolus. Is no pain ovation over the medial malleolus. Is no laxity with drawer testing. She has no pain the patient of the base of the fifth metatarsal. DP is slightly palpable. Examination of the knee reveals a large knee. There is no obvious effusion. Patellas not blottable. Exam is limited due to body habitus. She is able to extend. Medical Decision Making x-ray of the knee and ankle were obtained. X-ray of the knee reveals no acute process. There is no effusion, fracture or dislocation per my independent review and interpretation. Three-view x-ray of the ankle reveals a nondisplaced lateral malleolus fracture, Busby type B. Case was discussed with podiatry who she is seen. He agrees with walking boot. Other additions or changes: Apparently we may not have a walking boot large enough. If we do not she will placed in a posterior splint and not weightbearing. Will make sure patient is able to navigate with a walking boot or posterior splint with crutches/walker. Patient was informed what she was describing is not a true allergy. She she refuses to take any opiate analgesic other than Dilaudid. She was informed I am reluctant to give Dilaudid because of prior reported cases of respiratory f ailure in patients who have a BMI greater than 50. Radiography Chest X-Ray - ED: Read by ED Physician (Documented in the MDM as portion of the medical record by me) Diagnostic Testing: Clinical Impression(s) from Imaging Studies Knee X-Ray 01/16/24 11:48 IMPRESSION: Right knee arthroplasty without acute fracture or dislocation identified. Electronically Signed: Blanca Ortega MD at 12:20 EDT , Ankle X-Ray 01/16/24 11:50 IMPRESSION: Nondisplaced fracture of the right distal fibula. Possible nondisplaced fracture of the medial malleolus. Electronically Signed: Blanca Ortega MD at 12:19 EDT , Discharge Plan Triage Chief Complaint: Lower Extremity Injury ED Midlevel Provider: Antoinette Youngblood ED Provider: Liam Rdz Dx/Rx/DC Orders Clinical Impression: Ankle fracture, right, Strain of right knee and leg Instructions: ED Ankle Fracture Prescriptions: New hydrocodone-acetaminophen 5-325 mg tablet 1 tab PO Q6H PRN (Reason: pain) 3 Days Qty: 12 0RF No Action thyroid (pork) 90 mg tablet 90 mg PO DAILY Patient Comments: TAKE 3 TABLETS BY MOUTH ONCE DAILY IN THE MORNING FOR 60 DAYS oxybutynin chloride 5 mg tablet 5 mg PO BID Patient Comments: TAKE 1 TABLET BY MOUTH TWICE DAILY FOR 30 DAYS cholecalciferol (vitamin D3) 50 mcg (2,000 unit) capsule 2,000 unit PO DAILY Patient Comments: TAKE 1 CAPSULE BY MOUTH ONCE DAILY FOR 30 DAYS cyanocobalamin (vitamin B-12) 250 mcg tablet 250 mcg PO DAILY Patient Comments: TAKE 1 TABLET BY MOUTH ONCE DAILY FOR 90 DAYS duloxetine 30 mg capsule,delayed release(DR/EC) 30 mg PO BID Patient Comments: TAKE 1 CAPSULE BY MOUTH TWICE DAILY lisinopril 20 mg tablet 20 mg PO DAILY omeprazole 40 mg capsule,delayed release(DR/EC) 40 mg PO DAILY meloxicam 15 mg tablet 15 mg PO DAILY Qty: 21 0RF Rx Instructions: Do not take in conjunction with other NSAIDs. Tylenol is okay. Primary Care Provider: Laura Schroeder Referrals: Vazquez Guallpa DPM [Med Staff - Active Staff] - Laura Schroeder MD [Primary Care Provider] - Activity Restrictions/Additional Instructions: Follow-up with your orthopedic doctor or with the podiatry doctor listed above. They can both evaluate ankle fractures for further care. Disposition Disposition: Home, Self Care Discharge Date/Time: 01/16/24 14:50
--- NOTE | 2024-01-16 11:50 | RAD_ITS ---
HISTORY: INJURY. TECHNIQUE: XR Ankle Min 3 Views. COMPARISON: None. FINDINGS: BONES : Nondisplaced oblique fracture distal fibula. Possible nondisplaced fracture of the medial malleolus. Generalized osteopenia. Calcaneal enthesopathy. JOINTS: No dislocation. Degenerative change. SOFT TISSUES: Moderate soft tissue swelling. RAD/Ankle min 3 Views IMPRESSION: Nondisplaced fracture of the right distal fibula. Possible nondisplaced fracture of the medial malleolus. Electronically Signed: Blanca Ortega MD at 12:19 EDT ,
[2024-01-16] MEDS: Acetaminophen 500 MG Tablet 1000 MG PO (12:59)
[2024-01-16] MEDS: Ketorolac 30 MG/ML Syringe IV (13:08)
[2024-01-16 14:57] VITALS: BP 155/78; PULSE 65; RESP 19; TEMP 36.4; O2SAT 100
== END 2024-01-16 14:50 | disposition home or self-care (01) ==
PROVIDERS: Emergency Provider Emergency Medicine; PCP Student in an Organized Health Care Education/Training Program; Visit Provider Emergency Medicine
DX: S82.64XA Nondisplaced fracture of lateral malleolus of right fibula, initial encounter for closed fracture (principal); S86.911A Strain of unspecified muscle(s) and tendon(s) at lower leg level, right leg, initial encounter; W18.2XXA Fall in (into) shower or empty bathtub, initial encounter; I10 Essential (primary) hypertension
CPT/HCPCS: 73560; 73610; 96374; 99284; A4216

== ENCOUNTER → 2024-05-23 | Outpatient (CLI) | payer MEDICARE, SELFPAY ==
--- NOTE | 2024-05-23 09:02 | MRI_ITS ---
STUDY: MRI CERVICAL SPINE WITHOUT CONTRAST REASON FOR EXAM: Female, 73 years old. pain radiating into hands TECHNIQUE: Standardized fat and water weighted pulse sequences were obtained in the sagittal and axial planes. COMPARISON: Cervical spine x-ray dated February 03, 2024 FINDINGS: Normal foramen magnum and brainstem-cervical cord junction. Normal craniovertebral junction. Normal anterior atlantoaxial articulation. Normal odontoid process. There is straightening of the normal cervical lordosis. C2-3: Normal endplates. Normal disc height, signal and morphology. Normal central canal and intervertebral neural foramina. C3-4: Normal endplates. Diffuse disc desiccation with mild disc space narrowing and annular bulging. Normal central canal. Mild to moderate right foraminal stenosis with nerve root impingement secondary to uncovertebral facet joint hypertrophy. Moderate left foraminal stenosis with nerve root compression secondary to moderate facet joint hypertrophy. C4-5: Diffuse disc desiccation with mild disc space narrowing and posterior annular bulging. Moderate bilateral foraminal stenosis with nerve root compression due to uncovertebral facet joint hypertrophy. Normal central canal. C5-6: Moderate disc space narrowing with a diffuse disc osteophyte complex contributing to mild central canal stenosis. Severe bilateral foraminal stenosis with nerve root compression due to uncovertebral and facet joint hypertrophy. C6-7: Normal endplates. Mild disc space narrowing without bulging or herniation. Normal central canal and intervertebral neural foramina. C7-T1: Normal endplates. Mild disc desiccation. Normal disc height and morphology. Normal central canal and intervertebral neural foramina. Normal cervical cord. There is no demonstrated cervical cord syrinx cavity. Normal visualized soft tissue structures. MRI/Spine Cervical (Routine) IMPRESSION: 1. Multilevel degenerative changes, as described above. Electronically Signed: Akil Grey MD at 9:46 EDT Reading Location ID and State: [facility] / [place] , Service support ,
== END | disposition home or self-care (01) ==
PROVIDERS: PCP Student in an Organized Health Care Education/Training Program; Referring Provider Orthopaedic Surgery; Visit Provider Orthopaedic Surgery
DX: M54.2 Cervicalgia (principal)
CPT/HCPCS: 72141

== ENCOUNTER → 2024-07-06 | Outpatient (CLI) | payer MEDICARE, SELFPAY ==
--- NOTE | 2024-07-06 12:45 | RAD_ITS ---
INDICATION: Neck pain -- Please do flexion and extension only EXAMINATION/TECHNIQUE: X-RAY - XR Spine Cervical 4 or 5 Views COMPARISON: Prior study dated: 02/03/2024 FINDINGS: VERTEBRAE: Flexion and extension lateral views were obtained. No neutral, AP or open mouth views were obtained. No fracture. Minimal anterolisthesis of C5 over C6 unchanged since prior exam and stable on the flexion and extension views. Facet arthropathy at multiple levels. DISCS: Narrowing of C5-C6 disc space. Endplate spondylosis. NECK SOFT TISSUES: No prevertebral soft tissue widening. LUNG APICES: Not visualized. RAD/Cerv Spine 2 or 3 Views IMPRESSION: Degenerative changes as described above.. Electronically Signed: German Smiht MD at 15:57 EDT ,
--- NOTE | 2024-07-06 12:45 | RAD_ITS ---
INDICATION: Radiculopathy, lumbar region EXAMINATION/TECHNIQUE: X-RAY - XR Spine Lumbar 2 or 3 Views COMPARISON: No relevant prior comparison study available FINDINGS: VERTEBRAE: Preserved vertebral body height. No fracture. Grade 1 anterolisthesis of L4 on L5. Preservation of the normal lumbar lordosis. Diffuse facet arthropathy. Levoscoliosis centered at L3. DISCS: Disc space narrowing throughout the lumbar spine. Small osteophytes throughout. INCLUDED ABDOMEN: Included bowel gas pattern is non-obstructive. RAD/Lumbar Spine 2 or 3 Views IMPRESSION: No evidence of lumbar spinal fracture or spondylolisthesis. Mild to moderate degenerative change throughout. Electronically Signed: Vikas Cuevas MD at 21:57 EDT ,
== END | disposition home or self-care (01) ==
PROVIDERS: PCP Student in an Organized Health Care Education/Training Program; Referring Provider Anesthesiology; Visit Provider Anesthesiology
DX: M54.16 Radiculopathy, lumbar region (principal)
CPT/HCPCS: 72040; 72100

== ENCOUNTER → 2024-07-19 | Outpatient (CLI) | payer MEDICARE, SELFPAY ==
--- NOTE | 2024-07-19 09:02 | NEURO ---
NCS and/or EMG Patient Report Ordering Doctor: Tesfaye Espinoza DATE OF SERVICE: 07/19/24 Clinical Summary: 73 year old female patient with symptoms of numbness in the medial digits of both hands. Nerve Conduction Studies Summary: The right median-D2 SNAP distal latency was prolonged. Nerve conduction studies were normal. Needle Examination Summary: Needle examination of select muscles of the bilateral upper extremities demonstrated a higher proportion of motor unit action potentials with reduced recruitment, increased amplitude, increased duration, and polyphasia in the left first dorsal interosseous muscle. Impression: This is an abnormal study. There is electrodiagnostic evidence of the following - 1) Mild, right median mononeuropathy at the wrist (carpal tunnel syndrome), with sensory fiber demyelination There is no electrodiagnostic evidence of a right or left ulnar nerve entrapment. Comment: Isolated Chronic neurogenic changes in the left first dorsal interosseous muscle is of uncertain significance. Multi Select Codes Neurology Neurology Interp Codes: 71405-36 Musc test done w/n test comp (interp) (2) and 63873-15 Nrv cndj test 13/> studies (interp)
== END | disposition home or self-care (01) ==
PROVIDERS: PCP Student in an Organized Health Care Education/Training Program; Referring Provider Orthopaedic Surgery Orthopaedic Surgery of the Spine; Visit Provider Orthopaedic Surgery Orthopaedic Surgery of the Spine
DX: R20.0 Anesthesia of skin (principal)
CPT/HCPCS: 95886; 95913